=== PATIENT | female | born 1950 | race Caucasian/White ===

== ENCOUNTER → 2023-06-10 14:10 | Outpatient (REF) | payer MEDICARE, OTHER, SELFPAY | LOC: HWRAD 14:10 | PROVIDERS: ATTENDING PHYSICIAN Internal Medicine Critical Care Medicine; FAMILY PHYSICIAN Family Medicine; REFERRING PHYSICIAN Surgery | DX: R93.89 Abnormal findings on diagnostic imaging of other specified body structures (principal); R91.1 Solitary pulmonary nodule | CPT/HCPCS: 71250 ==

== ENCOUNTER → 2023-09-24 09:40 | Outpatient (REF) | payer MEDICARE, OTHER, SELFPAY | LOC: HWWDC 09:40 | PROVIDERS: ATTENDING PHYSICIAN Obstetrics & Gynecology; FAMILY PHYSICIAN Family Medicine | DX: Z12.31 Encounter for screening mammogram for malignant neoplasm of breast (principal) | CPT/HCPCS: 77063; 77067 ==

== ENCOUNTER 2023-12-11 09:59 | Emergency (ER) | payer MEDICARE, OTHER, SELFPAY ==
[2023-12-11 10:00] VITALS: BP 135/65
[2023-12-11 10:58] LABS: % Basophils 0.7 % (0-2); % Eosinophils 1.3 % (0-6); % Immature Granulocytes 0.3 % (0-0.5); % Lymphocytes 18.5 % (20.5-51.1); % Monocytes 9.7 % (1.7-9.3); % Neutrophils 69.5 % (42.2-75.2); Absolute Eosinophils 0.1 10^3/uL (0-0.7); Absolute Lymphocytes 1.1 10^3/uL (1.2-3.4); Absolute Monocytes 0.6 10^3/uL (0.1-0.6); Absolute Neutrophils 4.3 10^3/uL (1.4-6.5); Hemoglobin 13.7 g/dL (12.0-16.0); Mean Corp Hgb Conc. 34.3 g/dL (33.0-37.0); Mean Corpuscular Hgb 31.7 pg (27.0-31.0); Mean Corpuscular Volume 92.6 fL (81.0-99.0); Mean Platelet Volume 9.4 fL (7.4-10.4); Nucleated Red Blood Cells % 0 %; Platelet Count 274 10^3/uL (130-400); Red Blood Cell Count 4.32 10^6/uL (4.20-5.40); Red Cell Dist. Width 12.9 % (11.5-14.5); White Blood Cell Count 6.1 10^3/uL (4.8-10.8)
[2023-12-11 11:00] LABS: ALT (SGPT) 31 U/L (0-35); AST (SGOT) 35 U/L (14-36); Albumin 4.2 g/dl (3.5-5.0); Alkaline Phosphatase 92 U/L (38-126); Blood Urea Nitrogen 22 mg/dl (7-17); Calcium 9.5 mg/dl (8.4-10.2); Carbon Dioxide 27 mmol/L (22-30); Chloride 103 mmol/L (98-107); Glucose 105 mg/dl (70-99); Sodium 138 mmol/L (135-145); Total Bilirubin 0.4 mg/dl (0.2-1.3); Total Protein 6.8 g/dl (6.3-8.2); eGFR > 60.00
[2023-12-11 11:07] LABS: Troponin I < 0.012 ng/ml
[2023-12-11 11:24] VITALS: BP 112/59
[2023-12-11 11:25] VITALS: BMI 19.3
--- NOTE | 2023-12-11 11:30 | ED.GENMED ---
History of Present Illness
General
Chief Complaint: Chest Pain
Time Seen by Provider: 12/11/23 10:56
History of Present Illness
History of Present Illness:
73-year-old female with history of asthma and hyperlipidemia presenting to the emergency department for left-sided chest pain. Patient reports symptoms started last evening, woke her up from sleep, described as a sharp pain. Denies radiation of
pain. Pain is worse with deep inspiration. Reports that she has been coughing for the past 2 weeks, however is now minimal. Denies fever. Denies history of blood clots, recent travel, recent surgery, exogenous estrogen. Reports that she has had
similar symptoms in the past, unclear etiology. Denies known cardiac issues. She reports that pain has improved since arrival to the hospital. She denies abdominal pain or GI symptoms. She denies additional acute medical complaints.
Past History
Past History
ED Past Medical History: Hypercholesterolemia
ED Past Surgical History: Gynecological (Tubal ligation) and Other (Detached retina)
Social History
Tobacco: Non-smoker
Drug: None
Personal:
Living: with family
Phy Exam
Physical Exam
Physical Exam:
General: Well-appearing, no clinical signs of dehydration, nontoxic and in no acute distress
HEENT: protecting airway
Neck: appears supple
CV: Normal heart rate, regular rhythm
Resp: No accessory muscle use, no increased work of breathing, lungs clear to auscultation bilaterally
Abd: Soft and non-distended, no tenderness to palpation
Extremities: No deformities, no swelling
Neuro: alert, no focal neurologic deficit
: deferred
Rectal: deferred
Psych: Normal affect
Skin: Intact
Scores
Heart Score for Chest Pain Patients
STEMI patient?: No
History: Slightly or Non-Suspicious
ECG: Normal
Age: >/= 65 years
Risk Factors: 1 or 2 Risk Factors
Troponin: </= Normal Limit
Heart Score for Chest Pain Patients: 3
Heart Score Risk: 2.5% MACE over next 6 weeks
Course
Orders/Labs/Results
Orders:
Orders
12/11/23 10:07
ECG [Electrocardiogram (*1)] Urgent
Reason for Study: Chest Pain
EKG- Treatment ONCE
12/11/23 10:16
Chest [CR Chest - 2 Views ] Urgent
Comment:
Reason For Exam: chest pain, cough
12/11/23 10:27
Complete Blood Count/With Diff Urgent
Comprehensive Metabolic Panel Urgent
Troponin I Urgent
12/11/23 11:24
D-Dimer Urgent
Abnormal Lab Results
12/11/23
10:27
MCH 31.7 H pg
(27.0-31.0)
Absolute Lymphs (auto) 1.1 L 10^3/uL
(1.2-3.4)
Lymphocytes % 18.5 L %
(20.5-51.1)
Monocytes % 9.7 H %
(1.7-9.3)
BUN 22 H mg/dl
(7-17)
Glucose 105 H mg/dl
(70-99)
12/11/23 10:27
12/11/23 10:27
Vital Signs
Initial and Last Documented VS:
Initial Vital Signs
Temp Pulse Resp BP Pulse Ox
97.7 F 85 18 135/65 96
12/11/23 10:00 12/11/23 10:00 12/11/23 10:00 12/11/23 10:00 12/11/23 10:00
Last Documented Vital Signs
Temp Pulse Resp BP Pulse Ox
97.7 F 65 18 112/59 98
12/11/23 10:00 12/11/23 11:24 12/11/23 11:24 12/11/23 11:12/11/23 11:24
MDM/Problems Addressed
MDM/Problems Addressed:
73-year-old female with history of asthma and hyperlipidemia presenting for left-sided chest pain. Vital signs on arrival are normal.
On exam, patient well-appearing, no acute distress or comfort. Unremarkable cardiac and pulmonary exam. EKG reviewed, nonischemic. Reassuring that patient's symptoms are improving with lower suspicion for ACS. Also notes that she has had this
symptom in the past. Patient reports pleuritic quality, has been past 2 weeks, possible pleuritic irritation versus pneumonia. Will obtain chest x-ray imaging. Given age, cannot satisfy PERC rule, so also obtain dimer. Will continue to monitor
12:30 -patient's labs are unremarkable. Chest x-ray without acute cardiopulmonary disease. Dimer and troponin are undetectable. Patient remains hemodynamically stable, continues to express symptom improvement. At this time feel stable for
discharge. Will provide cardiology follow-up, patient has not had a stress test in a while. Return precautions discussed and patient verbalized
*EKG
Interpreted by ED Provider?: Yes
EKG Intrepretation Date: 12/11/23
EKG Intrepretation Time: 11:33
Interpretation: normal
Comparison EKG: no changes (07/03/21)
Heart Rate: 73
Rate: normal
Rhythm: sinus
[place]: normal axis
Interval: normal interval
QRS Pattern: normal QRS
Ischemia: no ischemia
*Critical Care Note
Total Time (30-74mins, 75-104mins- exclusive of procedures): Not Applicable
ED Attending Note
-
Portions of this chart may have been created with voice recognition software.� Occasional wrong word or��sound alike� substitutions may have occurred due to the inherent limitations of voice recognition software.
Discharge Plan
Departure
Prescriptions:
No Action
calcium carbonate-vitamin D3 [Calcium + D] 600 mg-5 mcg (200 unit) Tablet
1 tab PO DAILY
budesonide 0.5 mg/2 mL Suspension For Nebulization
0.5 mg INHALATION Q48H
vitamin B complex [Super B Complex] Tablet
1 tab PO DAILY
Rx Instructions:
w/ lytes
albuterol sulfate [Ventolin HFA] 90 mcg/actuation Hfa Aerosol Inhaler
2 puff INHALATION PRN PRN (Reason: Allergies)
Centrum Silver Tablet
1 tab PO DAILY
PreserVision AREDS-2 250-90-40-1 mg Capsule
1 tab PO DAILY
tramadol 50 mg tablet
25 - 50 mg PO Q6HPRN PRN (Reason: severe pain/breakthrough pain) Qty: 10 0RF
Referrals:
Elle Noonan MD [Family Provider] -
Interventions
Interventions:
*Risk Screen - Suicide Last Done: 12/11/23 10:03
*General Assessment Last Done: 12/11/23 10:03
*Neglect/Abuse Screening Last Done: 12/11/23 10:03
ED- Fall Risk Assessment Last Done: 12/11/23 10:58
ED- Cardiac Assessment Last Done: 12/11/23 10:58
Discharge Date and Time
Print Language: MARTINIQUAIS
[2023-12-11 12:20] LABS: D-Dimer < 0.27 ug/mlFEU (0.00-0.50)
== END 2023-12-11 13:19 | disposition home or self-care (01) ==
LOC: EMR 09:59
PROVIDERS: Emergency Medicine; EMERGENCY PHYSICIAN Student in an Organized Health Care Education/Training Program; FAMILY PHYSICIAN Family Medicine
DX: R07.89 Other chest pain (principal); E78.00 Pure hypercholesterolemia, unspecified; J45.909 Unspecified asthma, uncomplicated
CPT/HCPCS: 99285; 71046; 80053; 84484; 85025; 85379; 93005

== ENCOUNTER → 2024-09-24 09:41 | Outpatient (REF) | payer MEDICARE, OTHER, SELFPAY | LOC: HWWDC 09:41 | PROVIDERS: ATTENDING PHYSICIAN Obstetrics & Gynecology; FAMILY PHYSICIAN Family Medicine | DX: Z12.31 Encounter for screening mammogram for malignant neoplasm of breast (principal) | CPT/HCPCS: 77063; 77067 ==